=== PATIENT | female | born 1965 | race Caucasian/White ===

== ENCOUNTER 2018-07-07 23:06 | Emergency (ER) | payer BC ==
[2018-07-07] MEDS ORDERED: Sodium Chloride 0.9% 1000 ML 1,000 ML IV STA (23:36)
[2018-07-07] MEDS ORDERED: Hydromorphone 1 mg/ml Ampule IV ONE (23:36)
[2018-07-08] MEDS ORDERED: Hydromorphone 1 mg/ml Ampule ONE ×2 (00:05→03:22)
[2018-07-08] MEDS ORDERED: Sodium Chloride 0.9% 1000 ML 1,000 ML ONE (00:05)
[2018-07-08 00:22] LABS: BASOPHIL % 0.5 % (0.0-0.4); Basophil (Absolute #) 0.04 (0-0.4); Eosinophil % 3.1 % (0.00-5.0); Eosinophil (Absolute #) 0.23 (0-0.5); Granulocyte Absolute (ANC) 4.61 (1.4-6.9); Granulocytes % 61.9 % (36.0-66.0); Hematocrit 35.7 % (35-47); Hemoglobin 11.6 gm/dl (12.0-16.0); Lymphocyte (Absolute #) 2.04 (1.0-4.6); Lymphocytes % 27.4 % (24.0-44.0); Mean Cell Volume 92.5 fl (78-100); Mean Corpuscular Hgb Concent. 32.5 g/dl (32-36); Mean Platelet Volume 10.3 fl (6-9.5); Monocyte (Absolute #) 0.53 (0.0-1.3); Monocytes % 7.1 % (0.0-12.0); Platelet Count 308 K/mm3 (150-450); Red Blood Count 3.86 M/mm3 (4.1-5.4); White Blood Count 7.5 K/mm3 (4.0-10.5)
[2018-07-08 00:36] LABS: ALBUMIN 4.1 g/dL (3.5-5.0); ALKALINE PHOSPHATASE 370 U/L (38-126); AMYLASE 59 U/L (30-110); ANION GAP 11.3 MEQ/L (5-15); BLOOD UREA NITROGEN 13 mg/dL (7-17); CHLORIDE 106 mmol/L (98-107); Carbon Dioxide 24 mmol/L (22-30); Creatinine 1 0.62 mg/dL (0.52-1.04); Glucose 105 mg/dL (74-106); LIPASE 143 U/L (23-300); Potassium 3.9 mmol/L (3.5-5.1); SGOT/AST 629 U/L (14-36); SGPT/ALT 511 U/L (0-35); SODIUM 137 mmol/L (137-145); Total Protein 7.7 g/dL (6.3-8.2)
[2018-07-08 00:57] LABS: Appearance SLIGHTLY CLOUDY (CLEAR); Bacteria RARE /HPF (NEGATIVE); Bilirubin NEGATIVE (NEGATIVE); Blood SMALL Ery/ul (0-5); Epithelial Cells RARE /HPF (FEW); Glucose NEGATIVE (NEGATIVE); Ketones NEGATIVE (NEGATIVE); Leukocyte Esterase TRACE (NEGATIVE); Mucus SLIGHT /HPF (NEGATIVE); Nitrite NEGATIVE (NEGATIVE); Protein,Urine Dip NEGATIVE (Negative); RBC 0-2 /HPF (0-2); Specific Gravity 1.008 (1.005-1.025); Urobilinogen NEGATIVE mg/dL (0-1); WBC 0-2 /HPF (0-5)
--- NOTE | 2018-07-08 03:00 | ERPHSYRPT ---
- History of Present Illness Historian: patient Exam Limitations: no limitations Patient Subjective Stated Complaint: pt states she has had multiple epidodes of pain in the rt upper quad. pain started again at approx 2030 tonight and radiates to rt back. no relief with pain med. Triage Nursing Assessment: pt alert and oriented, answers questions approp. respirations nonlabored with lungs cta. pt ambulatory with steady gait noted. skin pink warm and dry. abd soft with tenderness in rt upper quad. bowel sounds present. Physician History: Pt is a 52 y/o female with a h/o abdominal pain in RUQ with radiation to shoulder and upper back. She denies F/C/S. No N/V/D. Pain is getting worse and worse, and today it was so severe, she had to come to the ER. Timing/Duration: day(s) Activities at Onset: none Quality: sharpness, stabbing Abdominal Pain Onset Location: RUQ Pain Radiation: scapula (on Left and shoulder.) Severity of Pain-Max: severe Severity of Pain-Current: mild Modifying Factors: Improves With: analgesics Associated Symptoms: denies symptoms Previous symptoms: same symptoms as today Allergies/Adverse Reactions: No Known Drug Allergies Allergy (Verified 07/07/18 23:27) Home Medications: Omeprazole 40 mg PO HS 07/07/18 [History] Venlafaxine HCl 37.5 mg [Effexor 37.5 mg] 37.5 mg PO HS 07/07/18 [History] Hx Tetanus, Diphtheria Vaccination/Date Given: Yes (2012) Hx Influenza Vaccination/Date Given: No Hx Pneumococcal Vaccination/Date Given: No Immunizations Up to Date: Yes - Review of Systems Constitutional: No Fever, No Chills Eyes: No Symptoms Ears, Nose, & Throat: No Symptoms Respiratory: No Cough, No Dyspnea Cardiac: No Chest Pain, No Edema, No Syncope Abdominal/Gastrointestinal: Abdominal Pain (RUQ) Genitourinary Symptoms: No Dysuria Musculoskeletal: No Back Pain, No Neck Pain Neurological: No Dizziness, No Focal Weakness, No Sensory Changes - Past Medical History Pertinent Past Medical History: No Neurological History: No Pertinent History Cardiac History: No Pertinent History Respiratory History: No Pertinent History Endocrine Medical History: No Pertinent History Musculoskeletal History: No Pertinent History - Past Surgical History Past Surgical History: Yes Gastrointestinal: Hemorrhoidectomy - Social History Smoking Status: Never smoker Exposure to second hand smoke: No Drug Use: none Patient Lives Alone: No - Female History Hx Last Menstrual Period: approx 3 weeks Hx Now: No - Nursing Vital Signs Nursing Vital Signs: Initial Vital Signs Temperature 97.4 F 07/07/18 23:14 Pulse Rate 81 07/07/18 23:14 Respiratory Rate 20 07/07/18 23:14 Blood Pressure 147/92 07/07/18 23:14 O2 Sat by Pulse Oximetry 99 07/07/18 23:14 Pain Scale Pain Intensity 10 - Physical Exam General Appearance: moderate distress (secondary to pain) Eye Exam: PERRL/EOMI, eyes nml inspection Ears, Nose, Throat Exam: normal ENT inspection, pharynx normal, moist mucous membranes Neck Exam: normal inspection, non-tender, supple, full range of motion Respiratory Exam: normal breath sounds, lungs clear, No respiratory distress Cardiovascular Exam: regular rate/rhythm, normal heart sounds Gastrointestinal/Abdomen Exam: soft, tenderness (RUQ) Back Exam: normal inspection, normal range of motion, No CVA tenderness, No vertebral tenderness Extremity Exam: normal inspection, normal range of motion, pelvis stable Neurologic Exam: alert, oriented x 3, cooperative, normal mood/affect, nml cerebellar function, sensation nml, No motor deficits SpO2: 100 - Course Nursing assessment & vital signs reviewed: Yes Ordered Tests: Active Orders 24 hr Category Date Time Status IV Insertion STAT Care 07/07/18 23:36 Active ABDOMEN AND PELVIS W CONTRAST [CT] Stat Exams 07/07/18 23:37 Taken CULTURE,URINE Stat Lab 07/08/18 00:43 Received UA W/RFX UR CULTURE Stat Lab 07/08/18 00:43 Completed Medication Summary Discontinued Medications Generic Name Dose Route Start Last Admin Trade Name Freq PRN Reason Stop Dose Admin Hydromorphone HCl 0.5 mg 07/07/18 23:36 07/08/18 00:09 Hydromorphone 1 Mg/Ml Ampule IV 07/07/18 23:37 0.5 mg STAT ONE Administration Hydromorphone HCl Confirm 07/08/18 00:05 Hydromorphone 1 Mg/Ml Ampule Administered 07/08/18 00:06 Dose 1 mg .ROUTE .STK-MED ONE Sodium Chloride 1,000 mls @ 999 mls/hr 07/07/18 23:36 07/08/18 01:12 Sodium Chloride 0.9% 1000 Ml IV 07/08/18 00:36 Infused .Q1H1M STA Infusion Sodium Chloride Confirm 07/08/18 00:05 Sodium Chloride 0.9% 1000 Ml Administered 07/08/18 00:06 Dose 1,000 mls @ ud .ROUTE .STK-MED ONE Lab/Rad Data: Laboratory Result Diagrams 07/07/18 00:19 07/07/18 00:19 Laboratory Results 07/08/18 07/07/18 07/07/18 Range/Units 00:43 00:19 00:19 WBC 7.5 (4.0-10.5) K/mm3 RBC 3.86 L (4.1-5.4) M/mm3 Hgb 11.6 L (12.0-16.0) gm/dl Hct 35.7 (35-47) % MCV 92.5 (78-100) fl MCH 30.0 (26-32) pg MCHC 32.5 (32-36) g/dl RDW 13.0 (11.5-14.0) % Plt Count 308 (150-450) K/mm3 MPV 10.3 H (6-9.5) fl Gran % 61.9 (36.0-66.0) % Eos # (Auto) 0.23 (0-0.5) Absolute Lymphs (auto) 2.04 (1.0-4.6) Absolute Monos (auto) 0.53 (0.0-1.3) Lymphocytes % 27.4 (24.0-44.0) % Monocytes % 7.1 (0.0-12.0) % Eosinophils % 3.1 (0.00-5.0) % Basophils % 0.5 (0.0-0.4) % Absolute Granulocytes 4.61 (1.4-6.9) Basophils # 0.04 (0-0.4) Sodium 137 (137-145) mmol/L Potassium 3.9 (3.5-5.1) mmol/L Chloride 106 (98-107) mmol/L Carbon Dioxide 24 (22-30) mmol/L Anion Gap 11.3 (5-15) MEQ/L BUN 13 (7-17) mg/dL Creatinine 0.62 (0.52-1.04) mg/dL Estimated GFR > 60.0 ML/MIN Glucose 105 (74-106) mg/dL Calcium 9.0 (8.4-10.2) mg/dL Total Bilirubin 0.90 (0.2-1.3) mg/dL AST 629 H (14-36) U/L ALT 511 H (0-35) U/L Alkaline Phosphatase 370 H (38-126) U/L Serum Total Protein 7.7 (6.3-8.2) g/dL Albumin 4.1 (3.5-5.0) g/dL Amylase 59 (30-110) U/L Lipase 143 (23-300) U/L Urine Color YELLOW (YELLOW) Urine Appearance SLIGHTLY CLOUDY (CLEAR) Urine pH 7.0 (5-6) Ur Specific Frederica 1.008 (1.005-1.025) Urine Protein NEGATIVE (Negative) Urine Ketones NEGATIVE (NEGATIVE) Urine Blood SMALL (0-5) Randy/ul Urine Nitrite NEGATIVE (NEGATIVE) Urine Bilirubin NEGATIVE (NEGATIVE) Urine Urobilinogen NEGATIVE (0-1) mg/dL Ur Leukocyte Esterase TRACE (NEGATIVE) Urine WBC (Auto) 0-2 (0-5) /HPF Urine RBC (Auto) 0-2 (0-2) /HPF U Epithel Cells (Auto) RARE (FEW) /HPF Urine Bacteria (Auto) RARE (NEGATIVE) /HPF Urine Mucus (Auto) SLIGHT (NEGATIVE) /HPF Urine Culture Reflexed YES (NO) Urine Glucose NEGATIVE (NEGATIVE) mg/dL - Progress Progress: improved Progress Note: 07/08/18 03:01 Pt in severe pain. She got Dilaudid 0.5mg IV and improved. IVF was given. labs showed increase in transaminases. CT was negative. Dr Castillo was contacted, and he recommended the pt to be transferred for ERCP. Dr Jacobo from [facility] accepted pt as a consult, and Dr Figueroa will be admitting physician for hospitalist. Pt will be kept NPO for ERCP in the AM. Counseled pt/family regarding: lab results, diagnosis, rad results - Departure Time of Disposition: 03:04 Departure Disposition: Transfer Clinical Impression: RUQ abdominal pain Condition: Stable Critical Care Time: No Referrals: RHODA GARCIA TRANSMISSION SUPERVISOR [Primary Care Provider] - Additional Instructions: Pt will be transferred to [facility]. DR Figueroa hospitalist accepts.m Dr Jacobo is consulted for ERCP.
[2018-07-08] MEDS ORDERED: Hydromorphone 1 mg/ml Ampule IV ONE (03:20)
[2018-07-08 03:26] VITALS: BP 131/82; PULSE 74; O2SAT 98
--- NOTE | 2018-07-08 09:12 | XRAY ---
Indication: Right upper quadrant pain and nausea one week. Multiple contiguous axial images obtained through the abdomen and pelvis using 80 cc Isovue 370 contrast only. Comparison: None Lung bases demonstrates mild bibasilar dependent atelectasis. No infiltrate or effusion. Heart is not enlarged. Stomach is distended with food/fluid. Noncontrasted stomach and bowel loops appear nonobstructed. Normal appendix. Mild diffuse scattered colonic fecal debris throughout. Gallbladder demonstrates 2 cm gallstone with mild wall thickening. No abnormal biliary distention. 1.4 cm caudate lobe hepatic hemangioma. Remaining liver, pancreas, spleen, adrenal glands, kidneys, ureters, bladder, uterus, and aorta appear unremarkable. No pathologic retroperitoneal lymphadenopathy. Osseous structures intact. No ventral or inguinal hernias. Impression: 1. Gallstone with mild wall thickening. Gallbladder sonogram may yield further information. 2. Hepatic hemangioma. 3. Fecal stasis without obstruction. Comment: Preliminary interpretation was made by [facility] who does not report gallbladder and liver findings. Telephone report given to Dr. Manriquez in the ER at 0856 hours on July 08, 2018. CT DI 27.85
== END 2018-07-08 03:59 | disposition short-term general hospital (02) ==
LOC: ED 23:06
DX: R10.11 Right upper quadrant pain (principal); Z79.899 Other long term (current) drug therapy
CPT/HCPCS: 36000; 36415; 74177; 80053; 81001; 82150; 83690; 85025; 87086; 96360; 96374; 96375; 96376; 99285; J1170

== ENCOUNTER 2019-12-24 06:26 | Day surgery (SDC) | payer BC, OTHER ==
[2019-12-24] MEDS ORDERED: Lactated Ringers 1,000 ML IV SCH (06:30)
[2019-12-24] MEDS ORDERED: DIPRIVAN 200 MG/20 ML IV ONE ×2 (08:41→08:52)
[2019-12-24 09:49] VITALS: BP 141/89; PULSE 69; O2SAT 99
--- NOTE | 2019-12-24 12:51 | OP ---
SURGERY DATE/TIME: 12/24/2019 0842 PREOPERATIVE DIAGNOSIS: Screening colonoscopy. POSTOPERATIVE DIAGNOSES: Screening colonoscopy, normal exam. PROCEDURES: Colonoscopy to cecum. SURGEON: Krishna Cordova M.D. ANESTHESIA: MAC. ESTIMATED BLOOD LOSS: None. COMPLICATIONS: None. SPECIMENS: None. FINDINGS: Normal exam. PATIENT PRESENTATION: This patient presents for screening colonoscopy. After discussing risks and benefits of colonoscopy the patient wished to proceed. DESCRIPTION OF PROCEDURE: The patient was brought to the endoscopy suite, placed in left lateral decubitus position, placed under MAC anesthesia. Rectal exam performed without abnormality. The scope was gently slowly advanced to the cecum without any difficulty requiring some external pressure. Bowel prep was quite good. There is minimal liquid stool that could be irrigated and suctioned. Ileocecal valve and appendiceal orifice were clearly identified. Scope was slowly withdrawn and the colon thoroughly evaluated. There was absolutely no pathology. The scope retroflexed into the rectum and then removed. The patient was recovered and taken back in stable condition. Plans for next colonoscopy in ten years unless symptoms develop.
== END 2019-12-24 09:59 | disposition home or self-care (01) ==
LOC: SDC 06:26
PROVIDERS: ATTEND Surgery
DX: Z12.11 Encounter for screening for malignant neoplasm of colon (principal)
CPT/HCPCS: J2704

== ENCOUNTER 2024-01-22 08:45 | Observation (INO) | payer BC ==
--- NOTE | 2024-01-22 09:13 | ERPHSYRPT ---
- History of Present Illness Time Seen by Provider: 01/22/24 09:07 Source: patient Physician History: 58-year-old female presents to the emergency department for evaluation of sudden collapse. Patient states she was walking outdoors. Patient acutely fainted and fell backwards. Patient has no recollection of what happened. Patient was advised that she collapsed. Patient now denies pain although she has bruising and some tenderness at her left forearm. Patient injured her left knee however patient states she was ambulatory after the episode. Patient denies any pain and does not want an x-ray of the left knee. No neck pain. Cervical spine cleared clinically. Symptoms are mild to moderate in intensity. No specific worsening improving factors. Patient voices no other complaints or concerns at this time. Portions of this note were created with voice recognition technology. There may be grammatical, spelling, punctuation or sound alike errors Timing/Duration: today Severity: moderate Associated Symptoms: denies symptoms Allergies/Adverse Reactions: No Known Drug Allergies Allergy (Verified 01/22/24 08:59) Home Medications: Venlafaxine HCl 37.5 mg [Effexor 37.5 mg] 37.5 mg PO HS 07/07/18 [History] Cetirizine HCl [Zyrtec] 10 mg PO DAILY 12/24/19 [History] Omeprazole 40 mg PO DAILY 01/22/24 [History] Hx Tetanus, Diphtheria Vaccination/Date Given: Yes (2012) Hx Influenza Vaccination/Date Given: No Hx Pneumococcal Vaccination/Date Given: No - Review of Systems Constitutional: No Symptoms, No Fever, No Chills Eyes: No Symptoms Ears, Nose, & Throat: No Symptoms Respiratory: No Symptoms, No Cough, No Dyspnea Cardiac: No Symptoms, No Chest Pain, No Edema, No Syncope Abdominal/Gastrointestinal: No Symptoms, No Abdominal Pain, No Nausea, No Vomiting, No Diarrhea Genitourinary Symptoms: No Symptoms, No Dysuria Musculoskeletal: No Symptoms, No Back Pain, No Neck Pain Skin: No Symptoms, No Rash Neurological: No Symptoms, No Dizziness, No Focal Weakness, No Sensory Changes Psychological: No Symptoms Endocrine: No Symptoms Hematologic/Lymphatic: No Symptoms Immunological/Allergic: No Symptoms All Other Systems: Reviewed and Negative - Past Medical History Pertinent Past Medical History: No Neurological History: No Pertinent History ENT History: No Pertinent History Cardiac History: No Pertinent History Respiratory History: No Pertinent History Endocrine Medical History: No Pertinent History Musculoskeletal History: No Pertinent History GI Medical History: No Pertinent History History: No Pertinent History Psycho-Social History: Anxiety Female Reproductive Disorders: No Pertinent History - Past Surgical History Past Surgical History: Yes Neuro Surgical History: No Pertinent History Cardiac: No Pertinent History Respiratory: No Pertinent History Gastrointestinal: Cholecystectomy, Hernia Repair Genitourinary: No Pertinent History Musculoskeletal: Orthopedic Surgery Female Surgical History: No Pertinent History Other Surgical History: L ankle - Social History Smoking Status: Never smoker Exposure to second hand smoke: No Drug Use: none Patient Lives Alone: No - Nursing Vital Signs Nursing Vital Signs: Initial Vital Signs Temperature 97.5 F 01/22/24 08:50 Pulse Rate 75 01/22/24 08:50 Respiratory Rate 18 01/22/24 08:50 Blood Pressure 149/101 01/22/24 08:50 O2 Sat by Pulse Oximetry 98 01/22/24 08:50 Pain Scale Pain Intensity 5 - Physical Exam General Appearance: no apparent distress, alert Eye Exam: PERRL/EOMI, eyes nml inspection Ears, Nose, Throat Exam: normal ENT inspection, moist mucous membranes Neck Exam: normal inspection, non-tender, supple, full range of motion Respiratory Exam: normal breath sounds, lungs clear, airway intact, No respiratory distress Cardiovascular Exam: regular rate/rhythm, normal heart sounds, normal peripheral pulses Gastrointestinal/Abdomen Exam: soft, normal bowel sounds, No tenderness, No mass Back Exam: normal inspection, normal range of motion, No CVA tenderness, No vertebral tenderness Extremity Exam: normal inspection, normal range of motion, pelvis stable, other (1+ nonpitting edema lower extremity) Neurologic Exam: alert, oriented x 3, cooperative, normal mood/affect, nml cerebellar function, nml station & gait, sensation nml, No motor deficits Skin Exam: normal color, warm, dry, No rash Lymphatic Exam: No adenopathy SpO2 Interpretation: normal SpO2: 98 O2 Delivery: Room Air - Course Nursing assessment & vital signs reviewed: Yes EKG Interpreted by Me: RATE (71), Sinus Rhythm (Anterior lead T wave inversions), NORMAL AXIS, NORMAL INTERVALS, NORMAL QRS - Radiology Exams Forearm X-ray Interpretation: Teleradiologist Report (No fracture or dislocation) Ordered Tests: Active Orders 24 hr Category Date Time Status Acute Care Occupational Therapist STAT Care 01/22/24 09:03 Active EKG-ER Only STAT Care 01/22/24 09:01 Active IV Insertion STAT Care 01/22/24 09:01 Active Pulse Oximetry (ED) STAT Care 01/22/24 09:01 Active CHEST WITH CONTRAST [CT] Stat Exams 01/22/24 10:24 Completed FOREARM Stat Exams 01/22/24 09:08 Completed HEAD WITHOUT CONTRAST [CT] Stat Exams 01/22/24 10:24 Completed CBC W DIFF Stat Lab 01/22/24 09:20 Completed CMP Stat Lab 01/22/24 09:20 Completed CULTURE,URINE Stat Lab 01/22/24 09:21 Received D-DIMER QUANTITATIVE Stat Lab 01/22/24 09:20 Completed HCG QUALITATIVE, URINE Stat Lab 01/22/24 09:20 Completed MAGNESIUM Stat Lab 01/22/24 09:20 Completed TROPONIN Q4H Lab 01/22/24 09:20 Completed TROPONIN Q4H Lab 01/22/24 13:15 Ordered TROPONIN Q4H Lab 01/22/24 17:15 Ordered UA W/RFX UR CULTURE Stat Lab 01/22/24 09:21 Completed Transfer Order Routine Transfer 01/22/24 Ordered Medication Summary Discontinued Medications Generic Name Dose Route Start Last Admin Trade Name Freq PRN Reason Stop Dose Admin Ceftriaxone Sodium 1 gm in 100 mls @ 200 mls/hr 01/22/24 09:54 01/22/24 11:36 Rocephin 1 Gm / 100 Ml Nacl IV 01/22/24 10:23 Infused STAT ONE Infusion Ceftriaxone Sodium Confirm 01/22/24 11:05 Rocephin 1 Gm / 100 Ml Nacl Administered 01/22/24 11:06 Dose 1 gm in 100 mls @ ud IV .STK-MED ONE Lab/Rad Data: Laboratory Result Diagrams 01/22/24 09:20 01/22/24 09:20 Laboratory Results 01/22/24 01/22/24 01/22/24 Range/Units 09:21 09:20 09:20 WBC (3.98-10.04) x10^3/uL RBC (3.93-5.22) x10^6/uL Hgb (11.2-15.7) g/dL Hct (34.1-44.9) % MCV (79.4-94.8) fL MCH (25.6-32.2) pg MCHC (32.2-35.5) g/dL RDW (11.7-14.4) % Plt Count (182-369) x10^3/uL MPV (9.4-12.3) fL Gran % (34.0-71.1) % Immature Gran % (Auto) (0.001-0.429) % Nucleat RBC Rel Count (0.00-0.2) % Eos # (Auto) (0.04-0.36) x10^3/uL Immature Gran # (Auto) (0.001-0.031) x10^3u/L Absolute Lymphs (auto) (1.18-3.74) x10^3/uL Absolute Monos (auto) (0.24-0.86) x10^3/uL Absolute Nucleated RBC (0.00-0.012) x10^3u/L Lymphocytes % (19.3-51.7) % Monocytes % (4.7-12.5) % Eosinophils % (0.7-5.8) % Basophils % (0.1-1.2) % Absolute Granulocytes (1.56-6.13) x10^3/uL Basophils # (0.01-0.08) x10^3/uL D-Dimer (0.0-0.50) mg/L Sodium (135-145) mmol/L Potassium (3.5-5.1) mmol/L Chloride (98-107) mmol/L Carbon Dioxide (22-30) mmol/L Anion Gap (5-15) MEQ/L BUN (7-17) mg/dL Creatinine (0.52-1.04) mg/dL Estimated GFR ML/MIN Glucose (74-106) mg/dL Calcium (8.4-10.2) mg/dL Magnesium (1.6-2.3) mg/dL Total Bilirubin (0.2-1.3) mg/dL AST (14-36) U/L ALT (0-35) U/L Alkaline Phosphatase (38-126) U/L Troponin I < 0.012 (0.000-0.033) ng/mL Serum Total Protein (6.3-8.2) g/dL Albumin (3.5-5.0) g/dL Urine Color Yellow (Yellow) Urine Appearance Clear (Clear) Urine pH 6.0 (4.6-8.0) Ur Specific Linch 1.015 (1.005-1.030) Urine Protein Negative (Negative) Urine Glucose (UA) Negative (Negative) mg/dL Urine Ketones Negative (Negative) Urine Blood Negative (Negative) Urine Nitrite Negative (Negative) Urine Bilirubin Negative (Negative) Urine Urobilinogen 0.2 (0.2) mg/dL Ur Leukocyte Esterase Moderate A (Negative) U Hyaline Cast (Auto) NONE SEEN (0-2) /LPF Urine Microscopic RBC 3-5 (0-5) /HPF Urine Microscopic WBC 11-20 A (0-5) /HPF Ur Epithelial Cells Moderate A (None Seen) /HPF Urine Bacteria Moderate A (None Seen) /HPF Urine Culture Reflexed YES (NO) Urine HCG, Qual NEGATIVE (NEGATIVE) 01/22/24 01/22/24 01/22/24 Range/Units 09:20 09:20 09:20 WBC 6.8 (3.98-10.04) x10^3/uL RBC 4.30 (3.93-5.22) x10^6/uL Hgb 12.2 (11.2-15.7) g/dL Hct 37.8 (34.1-44.9) % MCV 87.9 (79.4-94.8) fL MCH 28.4 (25.6-32.2) pg MCHC 32.3 (32.2-35.5) g/dL RDW 13.6 (11.7-14.4) % Plt Count 339 (182-369) x10^3/uL MPV 10.2 (9.4-12.3) fL Gran % 60.7 (34.0-71.1) % Immature Gran % (Auto) 0.3 (0.001-0.429) % Nucleat RBC Rel Count 0.0 (0.00-0.2) % Eos # (Auto) 0.23 (0.04-0.36) x10^3/uL Immature Gran # (Auto) 0.02 (0.001-0.031) x10^3u/L Absolute Lymphs (auto) 1.96 (1.18-3.74) x10^3/uL Absolute Monos (auto) 0.41 (0.24-0.86) x10^3/uL Absolute Nucleated RBC 0.00 (0.00-0.012) x10^3u/L Lymphocytes % 28.7 (19.3-51.7) % Monocytes % 6.0 (4.7-12.5) % Eosinophils % 3.4 (0.7-5.8) % Basophils % 0.9 (0.1-1.2) % Absolute Granulocytes 4.15 (1.56-6.13) x10^3/uL Basophils # 0.06 (0.01-0.08) x10^3/uL D-Dimer 0.53 H (0.0-0.50) mg/L Sodium 140 (135-145) mmol/L Potassium 4.1 (3.5-5.1) mmol/L Chloride 108 H (98-107) mmol/L Carbon Dioxide 25 (22-30) mmol/L Anion Gap 10.5 (5-15) MEQ/L BUN 15 (7-17) mg/dL Creatinine 0.71 (0.52-1.04) mg/dL Estimated GFR 99.7 ML/MIN Glucose 100 (74-106) mg/dL Calcium 9.2 (8.4-10.2) mg/dL Magnesium 2.2 (1.6-2.3) mg/dL Total Bilirubin 0.30 (0.2-1.3) mg/dL AST 29 (14-36) U/L ALT 23 (0-35) U/L Alkaline Phosphatase 76 (38-126) U/L Troponin I (0.000-0.033) ng/mL Serum Total Protein 7.3 (6.3-8.2) g/dL Albumin 4.0 (3.5-5.0) g/dL Urine Color (Yellow) Urine Appearance (Clear) Urine pH (4.6-8.0) Ur Specific Linch (1.005-1.030) Urine Protein (Negative) Urine Glucose (UA) (Negative) mg/dL Urine Ketones (Negative) Urine Blood (Negative) Urine Nitrite (Negative) Urine Bilirubin (Negative) Urine Urobilinogen (0.2) mg/dL Ur Leukocyte Esterase (Negative) U Hyaline Cast (Auto) (0-2) /LPF Urine Microscopic RBC (0-5) /HPF Urine Microscopic WBC (0-5) /HPF Ur Epithelial Cells (None Seen) /HPF Urine Bacteria (None Seen) /HPF Urine Culture Reflexed (NO) Urine HCG, Qual (NEGATIVE) - Progress Progress: improved Progress Note: 58-year-old female post syncope and collapse. Physical exam shows contusion to her left forearm. X-ray left forearm negative. Patient did hit her head. CT head negative for acute intracranial pathology. D-dimer positive. CTA chest negative for acute findings no PE. Incidental lung nodule observed. Laboratory workup nonremarkable. EKG T wave inversions anterior leads. Patient currently asymptomatic. Patient will be admitted for further evaluation and treatment. Case discussed with Dr. Hinkle hospitalist who accepts admission to observation. Portions of this note were created with voice recognition technology. There may be grammatical, spelling, punctuation or sound alike errors Complexity of problem addressed is moderate acute complicated. No critical care time. Complex of data reviewed and analyzed is sensitive. Test ordered chest reviewed results analyzed and correlated clinically with history and physical exam. Management discussed with hospitalist Dr. Greco who accepts admission at 11:43 AM. Risk of complication and or risk of morbidity/mortality of patient management is high. Patient requires hospitalization for further evaluation and treatment. Vital stable. Time spent admit patient is approximately 20 minutes. Plan of care established for shared decision making. No social determinants of health present to impede follow-up. Portions of this note were created with voice recognition technology. There may be grammatical, spelling, punctuation or sound alike errors 01/22/24 11:[address] Scott (Case discussed at 11:43 AM) Counseled pt/family regarding: lab results, diagnosis, rad results - Departure Departure Disposition: Observation Clinical Impression: Syncope and collapse, Contusion of left forearm, UTI (urinary tract infection), Lung nodule Condition: Stable Critical Care Time: No Referrals: RHODA GARCIA NP [Primary Care Provider] - Follow up/PCP as directed
[2024-01-22 09:27] LABS: Absolute Neutrophil Ct (ANC) 4.15 x10^3/uL (1.56-6.13); BASOPHIL % 0.9 % (0.1-1.2); Basophil (Absolute #) 0.06 x10^3/uL (0.01-0.08); Eosinophil % 3.4 % (0.7-5.8); Eosinophil (Absolute #) 0.23 x10^3/uL (0.04-0.36); Hematocrit 37.8 % (34.1-44.9); Hemoglobin 12.2 g/dL (11.2-15.7); IMMATURE GRAN # 0.02 x10^3u/L (0.001-0.031); IMMATURE GRAN % 0.3 % (0.001-0.429); Lymphocyte (Absolute #) 1.96 x10^3/uL (1.18-3.74); Lymphocytes % 28.7 % (19.3-51.7); Mean Cell Volume 87.9 fL (79.4-94.8); Mean Corpuscular Hemoglobin 28.4 pg (25.6-32.2); Mean Corpuscular Hgb Concent. 32.3 g/dL (32.2-35.5); Mean Platelet Volume 10.2 fL (9.4-12.3); Monocyte (Absolute #) 0.41 x10^3/uL (0.24-0.86); Neutrophil % 60.7 % (34.0-71.1); Platelet Count 339 x10^3/uL (182-369); Red Cell Distribution Width 13.6 % (11.7-14.4); White Blood Count 6.8 x10^3/uL (3.98-10.04)
[2024-01-22 09:30] LABS: HCG URINE TEST NEGATIVE (NEGATIVE)
[2024-01-22 09:34] LABS: Appearance Clear (Clear); Bacteria Moderate /HPF (None Seen); Bilirubin Negative (Negative); Blood Negative (Negative); Epithelial Cells Moderate /HPF (None Seen); Glucose, Urine Negative (Negative); Hyaline Casts NONE SEEN /LPF (0-2); Ketones Negative (Negative); Leukocyte Esterase Moderate (Negative); Nitrite Negative (Negative); Protein,Urine Dip Negative (Negative); Specific Gravity 1.015 (1.005-1.030); Urobilinogen 0.2 mg/dL (0.2)
--- NOTE | 2024-01-22 09:39 | XRAY ---
Indication: Pain following fall. Comparison: None 2 view left forearm demonstrates mild/moderate 1st metacarpal multangular scaphoid degenerative changes and overlying IV catheter. No other bony, articular, or soft tissue abnormalities.
[2024-01-22 09:48] LABS: ADD URINE CULTURE? YES (NO)
[2024-01-22 10:09] LABS: ANION GAP 10.5 MEQ/L (5-15); BILIRUBIN,TOTAL 0.3 mg/dL (0.2-1.3); Calcium 9.2 mg/dL (8.4-10.2); Creatinine 1 0.71 mg/dL (0.52-1.04); EST GLOMERULAR FILTRATION RATE 99.7 ML/MIN; MAGNESIUM 2.2 mg/dL (1.6-2.3); Potassium 4.1 mmol/L (3.5-5.1); Total Protein 7.3 g/dL (6.3-8.2)
[2024-01-22] MEDS ORDERED: ROCEPHIN 1 GM / 100 ML NaCl 1 GM/100 ML IVPB IV ONE (11:05)
[2024-01-22] MEDS: ROCEPHIN 1 GM / 100 ML NaCl 1 GM/100 ML IVPB IV ONE (11:07)
--- NOTE | 2024-01-22 11:31 | XRAY ---
Indication: Trauma. Left head injury following syncope. Multiple contiguous axial images obtained through the head without contrast. Comparison: None Normal appearing brain parenchyma, ventricles, and bony calvarium. Visualized paranasal sinuses and mastoid air cells are clear. Impression: Normal CT head without contrast exam.
--- NOTE | 2024-01-22 11:37 | XRAY ---
Indication: Syncope and collapse. Elevated d-dimer. Multiple contiguous axial images obtained through the chest using 80 cc Isovue 370 contrast and PE protocol. Comparison: None Good opacification pulmonary arteries to include the lobar and segmental branches. No pulmonary embolus. Heart not enlarged. Aorta is normal in course and caliber. No pathologic mediastinal/hilar lymphadenopathy. Lungs demonstrates minimal bilateral dependent atelectasis. Inferior right upper lobe demonstrates 7 mm noncalcified nodule. No infiltrate, consolidation, or effusion. Bony thorax intact with minimal levoscoliosis centered at T3. Limited upper abdomen demonstrates fatty liver and cholecystomy clips. Impression: 1. Negative pulmonary embolus. No acute cardiopulmonary abnormalities. 2. Chronic findings including indeterminant subcentimeter right upper lobe noncalcified nodule, levoscoliosis, and fatty liver.
--- NOTE | 2024-01-22 13:19 | PCM.HP ---
History of Present Illness - Chief Complaint Chief Complaint: Syncope and collapse Date: 01/22/24 History of Present Illness: is a 58 year old female with PMHX of Anxiety, GERD, allergies, and chronic obesity. She presented to the emergency department for evaluation of sudden collapse/ syncope. Patient states she was walking into work and this episode was witnessed by co-workers. Patient acutely fainted and fell forward. Patient has no recollection of what happened. Patient was advised that she collapsed. Patient now denies pain although she has bruising and some tenderness at her left forearm. Patient injured her left knee however patient states she was ambulatory after the episode. Patient denies any pain and does not want an x-ray of the left knee. No neck pain. Cervical spine cleared clinically. Symptoms are mild to moderate in intensity. No specific worsening improving factors. Patient voices no other complaints or concerns at this time. Radiology reports discussed with pt. Will continue IV antibiotics for UTI and IVF. Ordered Echo, carotid duplex, cardiology consult, and trend trops. She denies CP, SOB, abd. pain, N/V/D. - Review of Systems Constitutional: No Fever, No Chills Eyes: No Symptoms Ears, Nose, & Throat: No Symptoms Respiratory: No Cough, No Short Of Breath Cardiac: No Chest Pain, No Edema, No Syncope Abdominal/Gastrointestinal: No Abdominal Pain, No Nausea, No Vomiting, No Diarrhea Genitourinary Symptoms: No Dysuria Musculoskeletal: No Back Pain, No Neck Pain Skin: No Rash Neurological: Other (syncope), No Dizziness, No Focal Weakness, No Sensory Changes Psychological: No Symptoms Endocrine: No Symptoms Hematologic/Lymphatic: No Symptoms Immunological/Allergic: No Symptoms Medications & Allergies Home Medications: Home Medication List Venlafaxine HCl 37.5 mg [Effexor 37.5 mg] 37.5 mg PO HS 07/07/18 [History Confirmed 01/22/24] Cetirizine HCl [Zyrtec] 10 mg PO DAILY 12/24/19 [History Confirmed 01/22/24] Omeprazole 40 mg PO DAILY 01/22/24 [History Confirmed 01/22/24] Allergies/Adverse Reactions: Allergies Allergy/AdvReac Type Severity Reaction Status Date / Time No Known Drug Allergies Allergy Verified 01/22/24 08:59 - Past Medical History Past Medical History: No Neurological History: No Pertinent History ENT History: No Pertinent History Cardiac History: No Pertinent History Respiratory History: No Pertinent History Endocrine Medical History: No Pertinent History Musculoskelatal History: No Pertinent History GI Medical History: GERD History: No Pertinent History Pyscho-Social History: Anxiety Reproductive Disorders: No Pertinent History - Past Surgical History Past Surgical History: Yes Neuro Surgical History: No Pertinent History Cardiac History: No Pertinent History Respiratory Surgery: No Pertinent History GI Surgical History: Cholecystectomy, Hernia Repair Genitourinary Surgical Hx: No Pertinent History Musculskeletal Surgical Hx: Orthopedic Surgery Female Surgical History: No Pertinent History Other Surgical History: L ankle - Social History Smoking Status: Never smoker Exposure to second hand smoke: No Alcohol: Occasionally Drug Use: none - Social Determinants of Health Will the patient participate in the screening: Yes Do you worry about a steady place to live?: No Do you have any problems with any of the following?: No known problems In the past 12 months,have you had to go without utilities?: No Have you or anyone in your house had to go without enough: No Transportation Issues: No Has anyone in your support network made you feel unsafe?: No Does the patient want assistance with any of the above?: No - Physical Exam Vital Signs: Vital Signs - 24 hr Temp Pulse Resp BP BP Pulse Ox 01/22/24 12:04 97.7 F 70 16 131/79 98 01/22/24 11:51 98 01/22/24 11:16 68 16 139/91 97 01/22/24 10:30 65 15 151/95 96 01/22/24 10:00 66 17 131/81 100 01/22/24 09:31 75 14 120/85 96 01/22/24 09:01 98 01/22/24 09:00 73 18 148/107 97 01/22/24 08:50 97.5 F 75 18 149/101 98 General Appearance: no apparent distress, alert, obese Neurologic Exam: alert, oriented x 3, cooperative, normal mood/affect, nml cerebellar function, nml station & gait, sensation nml, No motor deficits Eye Exam: PERRL/EOMI, eyes nml inspection Ears, Nose, Throat Exam: normal ENT inspection, TMs normal, pharynx normal, moist mucous membranes Neck Exam: normal inspection, non-tender, supple, full range of motion Respiratory Exam: normal breath sounds, lungs clear, No respiratory distress Cardiovascular Exam: regular rate/rhythm, normal heart sounds, normal peripheral pulses Gastrointestinal/Abdomen Exam: soft, normal bowel sounds, No tenderness, No mass Back Exam: normal inspection, normal range of motion, No CVA tenderness, No vertebral tenderness Extremity Exam: normal inspection, normal range of motion, pelvis stable Skin Exam: normal color, warm, dry, No rash Lymphatic Exam: No adenopathy Results - Labs Lab/Micro Results: Lab Results-Last 24 Hours 01/22/24 01/22/24 01/22/24 Range/Units 09:20 09:20 09:20 WBC 6.8 (3.98-10.04) x10^3/uL RBC 4.30 (3.93-5.22) x10^6/uL Hgb 12.2 (11.2-15.7) g/dL Hct 37.8 (34.1-44.9) % MCV 87.9 (79.4-94.8) fL MCH 28.4 (25.6-32.2) pg MCHC 32.3 (32.2-35.5) g/dL RDW 13.6 (11.7-14.4) % Plt Count 339 (182-369) x10^3/uL MPV 10.2 (9.4-12.3) fL Gran % 60.7 (34.0-71.1) % Immature Gran % (Auto) 0.3 (0.001-0.429) % Nucleat RBC Rel Count 0.0 (0.00-0.2) % Eos # (Auto) 0.23 (0.04-0.36) x10^3/uL Immature Gran # (Auto) 0.02 (0.001-0.031) x10^3u/L Absolute Lymphs (auto) 1.96 (1.18-3.74) x10^3/uL Absolute Monos (auto) 0.41 (0.24-0.86) x10^3/uL Absolute Nucleated RBC 0.00 (0.00-0.012) x10^3u/L Lymphocytes % 28.7 (19.3-51.7) % Monocytes % 6.0 (4.7-12.5) % Eosinophils % 3.4 (0.7-5.8) % Basophils % 0.9 (0.1-1.2) % Absolute Granulocytes 4.15 (1.56-6.13) x10^3/uL Basophils # 0.06 (0.01-0.08) x10^3/uL D-Dimer 0.53 H (0.0-0.50) mg/L Sodium 140 (135-145) mmol/L Potassium 4.1 (3.5-5.1) mmol/L Chloride 108 H (98-107) mmol/L Carbon Dioxide 25 (22-30) mmol/L Anion Gap 10.5 (5-15) MEQ/L BUN 15 (7-17) mg/dL Creatinine 0.71 (0.52-1.04) mg/dL Estimated GFR 99.7 ML/MIN Glucose 100 (74-106) mg/dL Calcium 9.2 (8.4-10.2) mg/dL Magnesium 2.2 (1.6-2.3) mg/dL Total Bilirubin 0.30 (0.2-1.3) mg/dL AST 29 (14-36) U/L ALT 23 (0-35) U/L Alkaline Phosphatase 76 (38-126) U/L Troponin I (0.000-0.033) ng/mL Serum Total Protein 7.3 (6.3-8.2) g/dL Albumin 4.0 (3.5-5.0) g/dL Urine Color (Yellow) Urine Appearance (Clear) Urine pH (4.6-8.0) Ur Specific [place] (1.005-1.030) Urine Protein (Negative) Urine Glucose (UA) (Negative) mg/dL Urine Ketones (Negative) Urine Blood (Negative) Urine Nitrite (Negative) Urine Bilirubin (Negative) Urine Urobilinogen (0.2) mg/dL Ur Leukocyte Esterase (Negative) U Hyaline Cast (Auto) (0-2) /LPF Urine Microscopic RBC (0-5) /HPF Urine Microscopic WBC (0-5) /HPF Ur Epithelial Cells (None Seen) /HPF Urine Bacteria (None Seen) /HPF Urine Culture Reflexed (NO) Urine HCG, Qual (NEGATIVE) 01/22/24 01/22/24 01/22/24 Range/Units 09:20 09:20 09:21 WBC (3.98-10.04) x10^3/uL RBC (3.93-5.22) x10^6/uL Hgb (11.2-15.7) g/dL Hct (34.1-44.9) % MCV (79.4-94.8) fL MCH (25.6-32.2) pg MCHC (32.2-35.5) g/dL RDW (11.7-14.4) % Plt Count (182-369) x10^3/uL MPV (9.4-12.3) fL Gran % (34.0-71.1) % Immature Gran % (Auto) (0.001-0.429) % Nucleat RBC Rel Count (0.00-0.2) % Eos # (Auto) (0.04-0.36) x10^3/uL Immature Gran # (Auto) (0.001-0.031) x10^3u/L Absolute Lymphs (auto) (1.18-3.74) x10^3/uL Absolute Monos (auto) (0.24-0.86) x10^3/uL Absolute Nucleated RBC (0.00-0.012) x10^3u/L Lymphocytes % (19.3-51.7) % Monocytes % (4.7-12.5) % Eosinophils % (0.7-5.8) % Basophils % (0.1-1.2) % Absolute Granulocytes (1.56-6.13) x10^3/uL Basophils # (0.01-0.08) x10^3/uL D-Dimer (0.0-0.50) mg/L Sodium (135-145) mmol/L Potassium (3.5-5.1) mmol/L Chloride (98-107) mmol/L Carbon Dioxide (22-30) mmol/L Anion Gap (5-15) MEQ/L BUN (7-17) mg/dL Creatinine (0.52-1.04) mg/dL Estimated GFR ML/MIN Glucose (74-106) mg/dL Calcium (8.4-10.2) mg/dL Magnesium (1.6-2.3) mg/dL Total Bilirubin (0.2-1.3) mg/dL AST (14-36) U/L ALT (0-35) U/L Alkaline Phosphatase (38-126) U/L Troponin I < 0.012 (0.000-0.033) ng/mL Serum Total Protein (6.3-8.2) g/dL Albumin (3.5-5.0) g/dL Urine Color Yellow (Yellow) Urine Appearance Clear (Clear) Urine pH 6.0 (4.6-8.0) Ur Specific [place] 1.015 (1.005-1.030) Urine Protein Negative (Negative) Urine Glucose (UA) Negative (Negative) mg/dL Urine Ketones Negative (Negative) Urine Blood Negative (Negative) Urine Nitrite Negative (Negative) Urine Bilirubin Negative (Negative) Urine Urobilinogen 0.2 (0.2) mg/dL Ur Leukocyte Esterase Moderate A (Negative) U Hyaline Cast (Auto) NONE SEEN (0-2) /LPF Urine Microscopic RBC 3-5 (0-5) /HPF Urine Microscopic WBC 11-20 A (0-5) /HPF Ur Epithelial Cells Moderate A (None Seen) /HPF Urine Bacteria Moderate A (None Seen) /HPF Urine Culture Reflexed YES (NO) Urine HCG, Qual NEGATIVE (NEGATIVE) - Radiology Impressions Radiology Exams & Impressions: Radiology Procedures Category Date Time Status CAROTID BILATERAL [US] Routine Exams 01/22/24 12:18 Ordered CHEST WITH CONTRAST [CT] Stat Exams 01/22/24 10:24 Completed ECHO W/2D AND DOPPLER [US] Routine Exams 01/22/24 12:17 Ordered FOREARM Stat Exams 01/22/24 09:08 Completed HEAD WITHOUT CONTRAST [CT] Stat Exams 01/22/24 10:24 Completed Assessment/Plan (1) UTI (urinary tract infection) Current Visit: Yes Status: Acute Assessment & Plan: - Continue Rocephiin - IVF - UC pending Code(s): N39.0 - URINARY TRACT INFECTION, SITE NOT SPECIFIED (2) Fatty liver Current Visit: Yes Status: Acute Assessment & Plan: - as seen on CT - advised diet changes and exercise - f/u with PCP OP Code(s): K76.0 - FATTY (CHANGE OF) LIVER, NOT ELSEWHERE CLASSIFIED (3) T wave inversion in EKG Current Visit: Yes Status: Acute Assessment & Plan: - as seen on EKG - cardiology consult - Tele Code(s): R94.31 - ABNORMAL ELECTROCARDIOGRAM [ECG] [EKG] (4) Contusion of left forearm Current Visit: Yes Status: Acute Assessment & Plan: - XR of keft arm negative for acute concern - + bruising. - RICE techniques Code(s): S50.12XA - CONTUSION OF LEFT FOREARM, INITIAL ENCOUNTER (5) Lung nodule Current Visit: Yes Status: Acute Assessment & Plan: - as seen on CT- F/U OP Code(s): R91.1 - SOLITARY PULMONARY NODULE (6) Syncope and collapse Current Visit: Yes Status: Acute Assessment & Plan: - Echo - carotid duplex - Head CT negative for acute concern - D-dimer 0.53 - Chest CT: Impression: 1. Negative pulmonary embolus. No acute cardiopulmonary abnormalities. 2. Chronic findings including indeterminant subcentimeter right upper lobe noncalcified nodule, levoscoliosis, and fatty liver. -Forearm XR 2 view left forearm demonstrates mild/moderate 1st metacarpal multangular scaphoid degenerative changes and overlying IV catheter. No other bony, articular, or soft tissue abnormalities. - IVF, antibiotics for UTI - Tylenol for H/A Code(s): R55 - SYNCOPE AND COLLAPSE (7) Anxiety Current Visit: Yes Status: Chronic Assessment & Plan: - continue Effexor XR Code(s): F41.9 - ANXIETY DISORDER, UNSPECIFIED (8) GERD (gastroesophageal reflux disease) Current Visit: Yes Status: Chronic Assessment & Plan: - continue omeprazole Code(s): K21.9 - GASTRO-ESOPHAGEAL REFLUX DISEASE WITHOUT ESOPHAGITIS (9) Allergies Current Visit: Yes Status: Chronic Assessment & Plan: - continue zyrtec Code(s): T78.40XA - ALLERGY, UNSPECIFIED, INITIAL ENCOUNTER (10) Obesity (BMI 30.0-34.9) Current Visit: Yes Status: Chronic Assessment & Plan: - advised diet and exercise control VTE: Loveonx PPI: Omeprazole Next of KIN: D/C plan: tomorrow Code status: Full Code(s): E66.9 - OBESITY, UNSPECIFIED
[2024-01-22] MEDS: Sodium Chloride 0.9% 1000 ML 1,000 ML IV SCH (14:55)
--- NOTE | 2024-01-22 14:56 | XRAY ---
Indication: Syncope. Two-dimensional sonogram and color Doppler imaging carotid arteries of the neck performed. Comparison: None Examination right carotid circulation demonstrates widely patent common carotid, carotid bulb, internal carotid, and external carotid arteries. Distal internal carotid artery is tortuous. PSV CCA is 89 cm/s. PSV ICA is 96 cm/s. ICA/CCA ratio is 1.1. Normal antegrade vertebral artery flow. Examination left carotid circulation demonstrates widely patent common carotid, carotid bulb, internal carotid, and external carotid arteries. PSV CCA is 106 cm/s. PSV ICA is 94 cm/s. ICA/CCA ratio is 0.9. Normal antegrade vertebral artery flow. Impression: Widely patent carotid arteries of the neck. Velocity measurements and ratios negative for hemodynamically significant flow-limiting stenosis.
[2024-01-22] MEDS: TYLENOL 325 MG PO STA (14:58)
[2024-01-22 14:59] LABS: INFLUENZA A NEGATIVE (NEGATIVE); INFLUENZA B NEGATIVE (NEGATIVE); RESPIRATORY SYNCTIAL VIRUS NEGATIVE (NEGATIVE); SARS-CoV-2 Xpert Express NEGATIVE (NEGATIVE)
[2024-01-22] MEDS: ENOXAPARIN SODIUM SQ SCH (15:02)
[2024-01-22] MEDS: TYLENOL 325 MG PO PRN (21:12)
[2024-01-22] MEDS: EFFEXOR 37.5 MG PO SCH (21:12)
[2024-01-23 05:11] LABS: Hematocrit 34.3 % (34.1-44.9); Mean Cell Volume 87.1 fL (79.4-94.8); Mean Corpuscular Hemoglobin 27.9 pg (25.6-32.2); Mean Corpuscular Hgb Concent. 32.1 g/dL (32.2-35.5); Mean Platelet Volume 10.2 fL (9.4-12.3); Platelet Count 333 x10^3/uL (182-369); Red Blood Count 3.94 x10^6/uL (3.93-5.22); Red Cell Distribution Width 13.7 % (11.7-14.4); White Blood Count 4.7 x10^3/uL (3.98-10.04)
[2024-01-23 05:33] LABS: ALBUMIN 3.7 g/dL (3.5-5.0); ANION GAP 11.3 MEQ/L (5-15); BILIRUBIN,TOTAL 0.4 mg/dL (0.2-1.3); Calcium 8.6 mg/dL (8.4-10.2); Creatinine 1 0.68 mg/dL (0.52-1.04); EST GLOMERULAR FILTRATION RATE 102.2 ML/MIN; Potassium 3.8 mmol/L (3.5-5.1); Total Protein 6.7 g/dL (6.3-8.2)
[2024-01-23 07:20] VITALS: RESP 16; TEMP 98.1
[2024-01-23] MEDS: Protonix 40MG Tablet PO SCH (08:55)
[2024-01-23] MEDS: CLARITIN 10 MG PO SCH (08:56)
[2024-01-23] MEDS ORDERED: ROCEPHIN 1 GM / 100 ML NaCl 1 GM/100 ML IVPB IV SCH (10:00)
[2024-01-23] MEDS: Imitrex 6 MG/0.5 ML SQ STA (10:34)
--- NOTE | 2024-01-23 11:30 | PCM.DS ---
Discharge Summary Date of Admission: 01/22/24 11:55 Date of Discharge: 01/23/24 Admitting Physician: COBY TRENT MD Consults: Consults on Case 01/22/24 13:17 Cardiology Consult [Notify Analysis Engineer of Admit] ROUTINE Primary Care Provider: RHODA GARCIA Allergies Allergies No Known Drug Allergies Allergy (Verified 01/22/24 08:59) Hospital Summary - Hospital Course Hospital Course: 01/22/24 is a 58 year old female with PMHX of Anxiety, GERD, allergies, and chronic obesity. She presented to the emergency department for evaluation of sudden collapse/ syncope. Patient states she was walking into work and this episode was witnessed by co-workers. Patient acutely fainted and fell forward. Patient has no recollection of what happened. Patient was advised that she collapsed. Patient now denies pain although she has bruising and some tenderness at her left forearm. Patient injured her left knee however patient states she was ambulatory after the episode. Patient denies any pain and does not want an x-ray of the left knee. No neck pain. Cervical spine cleared c linically. Symptoms are mild to moderate in intensity. No specific worsening improving factors. Patient voices no other complaints or concerns at this time. Radiology reports discussed with pt. Will continue IV antibiotics for UTI and IVF. Ordered Echo, carotid duplex, cardiology consult, and trend trops. She denies CP, SOB, abd. pain, N/V/D. 01/23/24 Pt resting in bed. She denies any overnight events. She feels her syncopal episode may have been related to stress and no sleep 2:2 her job. Discussed pt case with cardiology and he agrees with Holter monitor OP. Echo and carotid duplex non-concerning. She states she has H/A daily and uses Excedrin migraine daily. She reports she has never discussed this with her PCP. Imitrex started now for H/A today. She would benefit from Op migraine med management. She would prefer to f/u with PCP and does not referral to neurology at this time OP. UC negative and antibiotic stopped. AST/ ALT and Alk phos elevated. She will need repeat Op labs this week by PCP for f/u. If ok with cardiology she can d/c today. She denies any further concerns at this time. * Pt admitted to having diarrhea to sales and service advisor OXYACETYLENE BURNER but did not tell provider this. Labs did not indicate dehydration. She has had no diarrhea since admission. Cardiology does not feel after speaking with her that she needs a holter monitor OP. He would like her to have calcium scoring OP. - Vitals & Intake/Output Vital Signs: Vital Signs Temperature 98.1 F 01/23/24 07:19 Pulse Rate 78 01/23/24 08:42 Respiratory Rate 16 01/23/24 07:19 Blood Pressure 142/90 01/23/24 08:42 O2 Sat by Pulse Oximetry 95 01/23/24 07:19 Intake & Output: Intake & Output 01/20/24 01/21/24 01/22/24 01/23/24 11:59 11:59 11:59 11:59 Intake Total 3218 Balance 3218 Weight 106 kg 103.5 kg - Lab Result Diagrams: 01/23/24 05:00 01/23/24 05:00 Lab Results-Last 24 Hrs: Lab Results-Last 24 Hours 01/22/24 01/22/24 01/22/24 Range/Units 13:15 17:06 Unknown WBC (3.98-10.04) x10^3/uL RBC (3.93-5.22) x10^6/uL Hgb (11.2-15.7) g/dL Hct (34.1-44.9) % MCV (79.4-94.8) fL MCH (25.6-32.2) pg MCHC (32.2-35.5) g/dL RDW (11.7-14.4) % Plt Count (182-369) x10^3/uL MPV (9.4-12.3) fL Sodium (135-145) mmol/L Potassium (3.5-5.1) mmol/L Chloride (98-107) mmol/L Carbon Dioxide (22-30) mmol/L Anion Gap (5-15) MEQ/L BUN (7-17) mg/dL Creatinine (0.52-1.04) mg/dL Estimated GFR ML/MIN Glucose (74-106) mg/dL Calcium (8.4-10.2) mg/dL Total Bilirubin (0.2-1.3) mg/dL AST (14-36) U/L ALT (0-35) U/L Alkaline Phosphatase (38-126) U/L Troponin I < 0.012 < 0.012 (0.000-0.033) ng/mL Serum Total Protein (6.3-8.2) g/dL Albumin (3.5-5.0) g/dL Influenza Type A Ag NEGATIVE (NEGATIVE) Influenza Type B Ag NEGATIVE (NEGATIVE) RSV (PCR) NEGATIVE (NEGATIVE) SARS-CoV-2 (PCR) NEGATIVE (NEGATIVE) 01/23/24 01/23/24 Range/Units 05:00 05:00 WBC 4.7 (3.98-10.04) x10^3/uL RBC 3.94 (3.93-5.22) x10^6/uL Hgb 11.0 L (11.2-15.7) g/dL Hct 34.3 (34.1-44.9) % MCV 87.1 (79.4-94.8) fL MCH 27.9 (25.6-32.2) pg MCHC 32.1 L (32.2-35.5) g/dL RDW 13.7 (11.7-14.4) % Plt Count 333 (182-369) x10^3/uL MPV 10.2 (9.4-12.3) fL Sodium 140 (135-145) mmol/L Potassium 3.8 (3.5-5.1) mmol/L Chloride 107 (98-107) mmol/L Carbon Dioxide 25 (22-30) mmol/L Anion Gap 11.3 (5-15) MEQ/L BUN 11 (7-17) mg/dL Creatinine 0.68 (0.52-1.04) mg/dL Estimated GFR 102.2 ML/MIN Glucose 93 (74-106) mg/dL Calcium 8.6 (8.4-10.2) mg/dL Total Bilirubin 0.40 (0.2-1.3) mg/dL AST 153 H (14-36) U/L ALT 83 H (0-35) U/L Alkaline Phosphatase 147 H (38-126) U/L Troponin I (0.000-0.033) ng/mL Serum Total Protein 6.7 (6.3-8.2) g/dL Albumin 3.7 (3.5-5.0) g/dL Influenza Type A Ag (NEGATIVE) Influenza Type B Ag (NEGATIVE) RSV (PCR) (NEGATIVE) SARS-CoV-2 (PCR) (NEGATIVE) Micro Results-Entire Visit: Microbiology 01/22/24 09:21 Urine Culture - Preliminary Urine, Void NO GROWTH TO DATE - Radiology Exams Ordered Rad Exams-Entire Visit: Radiology Procedures Category Date Time Status CAROTID BILATERAL [US] Routine Exams 01/22/24 12:18 Completed CHEST WITH CONTRAST [CT] Stat Exams 01/22/24 10:24 Completed ECHO W/2D AND DOPPLER [US] Routine Exams 01/22/24 12:17 Taken FOREARM Stat Exams 01/22/24 09:08 Completed HEAD WITHOUT CONTRAST [CT] Stat Exams 01/22/24 10:24 Completed - Procedures and Test Procedures and Tests throughout Hospitalization: Therapy Orders & Screens 01/23/24 07:42 EKG STAT Comment: Diagnosis: Syncope and collapse Discharge Exam General Appearance: no apparent distress, alert, obese Neurologic Exam: alert, oriented x 3, cooperative, normal mood/affect, nml cerebellar function, sensation nml, No motor deficits Eye Exam: PERRL, EOMI, eyes nml inspection Ears, Nose, Throat Exam: normal ENT inspection, pharynx normal, moist mucous membranes Neck Exam: normal inspection, non-tender, supple, full range of motion Respiratory Exam: normal breath sounds, lungs clear, No respiratory distress Cardiovascular Exam: regular rate/rhythm, normal heart sounds Gastrointestinal/Abdomen Exam: soft, No tenderness, No mass Pelvic Exam: deferred Rectal Exam: deferred Back Exam: normal inspection, normal range of motion, No CVA tenderness, No vertebral tenderness Extremity Exam: normal inspection, normal range of motion Skin Exam: normal color, warm, dry Final Diagnosis/Problem List - Final Discharge Diagnosis/Problem (1) UTI (urinary tract infection) Current Visit: Yes Status: Acute Code(s): N39.0 - URINARY TRACT INFECTION, SITE NOT SPECIFIED (2) Fatty liver Current Visit: Yes Status: Acute Code(s): K76.0 - FATTY (CHANGE OF) LIVER, NOT ELSEWHERE CLASSIFIED (3) T wave inversion in EKG Current Visit: Yes Status: Acute Code(s): R94.31 - ABNORMAL ELECTROCARDIOGRAM [ECG] [EKG] (4) Contusion of left forearm Current Visit: Yes Status: Acute Code(s): S50.12XA - CONTUSION OF LEFT FOREARM, INITIAL ENCOUNTER (5) Lung nodule Current Visit: Yes Status: Acute Code(s): R91.1 - SOLITARY PULMONARY NODULE (6) Syncope and collapse Current Visit: Yes Status: Acute Code(s): R55 - SYNCOPE AND COLLAPSE (7) Anxiety Current Visit: Yes Status: Chronic Code(s): F41.9 - ANXIETY DISORDER, UNSPECIFIED (8) GERD (gastroesophageal reflux disease) Current Visit: Yes Status: Chronic Code(s): K21.9 - GASTRO-ESOPHAGEAL REFLUX DISEASE WITHOUT ESOPHAGITIS (9) Allergies Current Visit: Yes Status: Chronic Code(s): T78.40XA - ALLERGY, UNSPECIFIED, INITIAL ENCOUNTER (10) Obesity (BMI 30.0-34.9) Current Visit: Yes Status: Chronic Assessment & Plan: (1) UTI (urinary tract infection) Current Visit: Yes Status: Acute Assessment & Plan: - Continue Rocephiin - IVF - UC pending 01/22 - UC negative - antibiotics stopped Code(s): N39.0 - URINARY TRACT INFECTION, SITE NOT SPECIFIED (2) Fatty liver Current Visit: Yes Status: Acute Assessment & Plan: - as seen on CT - advised diet changes and exercise - f/u with PCP OP 01/22 - AST 153, ALT 83, alk phos 147- recheck this week OP with PCP - Consider referral to specialist. Code(s): K76.0 - FATTY (CHANGE OF) LIVER, NOT ELSEWHERE CLASSIFIED (3) T wave inversion in EKG Current Visit: Yes Status: Acute Assessment & Plan: - as seen on EKG - cardiology consult - Tele 01/22 - repeat EKG improved Code(s): R94.31 - ABNORMAL ELECTROCARDIOGRAM [ECG] [EKG] (4) Contusion of left forearm Current Visit: Yes Status: Acute Assessment & Plan: - XR of keft arm negative for acute concern - + bruising. - RICE techniques Code(s): S50.12XA - CONTUSION OF LEFT FOREARM, INITIAL ENCOUNTER (5) Lung nodule Current Visit: Yes Status: Acute Assessment & Plan: - as seen on CT- F/U OP 01/22 - Per Fleischner guideline repeat CT chest in 6- 12 months- f/u with PCP Code(s): R91.1 - SOLITARY PULMONARY NODULE (6) Syncope and collapse Current Visit: Yes Status: Acute Assessment & Plan: - Echo - carotid duplex - Head CT negative for acute concern - D-dimer 0.53 - Chest CT: Impression: 1. Negative pulmonary embolus. No acute cardiopulmonary abnormalities. 2. Chronic findings including indeterminant subcentimeter right upper lobe noncalcified nodule, levoscoliosis, and fatty liver. -Forearm XR 2 view left forearm demonstrates mild/moderate 1st metacarpal multangular scaphoid degenerative changes and overlying IV catheter. No other bony, articular, or soft tissue abnormalities. - IVF, antibiotics for UTI - Tylenol for H/A 01/22 - echo- EF 60-65% - carotid duplex - non-concerning - No Holter monitor needed OP per cardiology - Pt would benefit from calcium scoring test OP. - Pt reported to cardiology she had diarrhea OXYACETYLENE BURNER- she never mentioned this to m e. No diarrhea since admission and labs do not show dehydration. Code(s): R55 - SYNCOPE AND COLLAPSE (7) Anxiety Current Visit: Yes Status: Chronic Assessment & Plan: - continue Effexor XR 01/22 - pt reports increased stress 2:2 to her job and not getting enough sleep. She feels this is what caused syncopal episode Code(s): F41.9 - ANXIETY DISORDER, UNSPECIFIED (8) GERD (gastroesophageal reflux disease) Current Visit: Yes Status: Chronic Assessment & Plan: - continue omeprazole Code(s): K21.9 - GASTRO-ESOPHAGEAL REFLUX DISEASE WITHOUT ESOPHAGITIS (9) Allergies Current Visit: Yes Status: Chronic Assessment & Plan: - continue zyrtec Code(s): T78.40XA - ALLERGY, UNSPECIFIED, INITIAL ENCOUNTER (10) Obesity (BMI 30.0-34.9) Current Visit: Yes Status: Chronic Assessment & Plan: - advised diet and exercise control Code(s): E66.9 - OBESITY, UNSPECIFIED (11) Migraine headache Current Visit: Yes Status: Acute Assessment & Plan: - Imitrex started - Advised not to take Excedrin migraine daily as she has been doing. - She declined referral to neurology and would prefer PCP manage. - RX for Imitrex 25mg daily PRN sent in. F/U with PCP for further management. Code(s): G43.909 - MIGRAINE, UNSP, NOT INTRACTABLE, WITHOUT STATUS MIGRAINOSUS - Discharge Discharge Date: 01/23/24 Disposition: Home, Self-Care Condition: Stable Prescriptions: New Sumatriptan Succinate 25 mg [Imitrex 25 MG] 25 mg SQ DAILY PRN PRN 9 Days #9 tab PRN Reason: Headache Continue Venlafaxine HCl 37.5 mg [Effexor 37.5 mg] 37.5 mg PO HS Cetirizine HCl [Zyrtec] 10 mg PO DAILY Omeprazole 40 mg PO DAILY Outpatient Orders: Holter Monitor Facility: [facility], Location: RESPIRATORY THERAPY Follow up with: RHODA GARCIA NP [Primary Care Provider] - 01/28/24 2:00 pm
[2024-01-23 12:18] VITALS: BP 133/73; PULSE 72; O2SAT 94
--- NOTE | 2024-01-23 12:39 | PCM.CONS ---
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 female with history of GERD and anxiety who was admitted following a syncopal episode. While getting dressed for work yesterday am, she had voluminous diarrhea which she attributes to eating spaghetti the night before. Following this episode, she continued to get dress and only drank her am coffee. She was not bothered by light-headedness upon standing afterwards. 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 She denied any urinary or fecal incontinance. No confusion afterwards. She did feel mildly light-headed for 5-10 minutes. She was given Gatorade and felt better. She denies any chest discomfort, shortness of breath, or palpitations. She was subsequently brought to our hospital. ECG showed her to have mild T wave inversion in leads V2 and V3. Serial cardiac enzymes were negative x3. Echocardiogram showed a structurally normal heart with LVEF of 60-65%. cc:: The requesting physician will be sent a copy of the consult. Review of Systems - Review of Systems All systems: all other systems reviewed and were unremarkable (Pertinent positves and negatives in HPI.) - Past Medical History Past Medical History: No Neurological History: No Pertinent History ENT History: No Pertinent History Cardiac History: No Pertinent History Respiratory History: No Pertinent History Endocrine Medical History: No Pertinent History Musculoskelatal History: No Pertinent History GI Medical History: GERD History: No Pertinent History Pyscho-Social History: Anxiety Reproductive Disorders: No Pertinent History - Past Surgical History Past Surgical History: Yes Neuro Surgical History: No Pertinent History Cardiac History: No Pertinent History Respiratory Surgery: No Pertinent History GI Surgical History: Cholecystectomy, Hernia Repair Genitourinary Surgical Hx: No Pertinent History Musculskeletal Surgical Hx: Orthopedic Surgery Female Surgical History: No Pertinent History Other Surgical History: L ankle - Social History Smoking Status: Never smoker Exposure to second hand smoke: No Alcohol: Occasionally Drug Use: none - Social Determinants of Health Will the patient participate in the screening: Yes Do you worry about a steady place to live?: No Do you have any problems with any of the following?: No known problems In the past 12 months,have you had to go without utilities?: No Have you or anyone in your house had to go without enough: No Transportation Issues: No Has anyone in your support network made you feel unsafe?: No Does the patient want assistance with any of the above?: No Medications & Allergies Home Medications: Home Medication List Venlafaxine HCl 37.5 mg [Effexor 37.5 mg] 37.5 mg PO HS 07/07/18 [History Confirmed 01/22/24] Cetirizine HCl [Zyrtec] 10 mg PO DAILY 12/24/19 [History Confirmed 01/22/24] Omeprazole 40 mg PO DAILY 01/22/24 [History Confirmed 01/22/24] Sumatriptan Succinate 25 mg [Imitrex 25 MG] 25 mg SQ DAILY PRN PRN 9 Days #9 tab 01/23/24 [Rx] Allergies/Adverse Reactions: Allergies Allergy/AdvReac Type Severity Reaction Status Date / Time No Known Drug Allergies Allergy Verified 01/22/24 08:59 Exam - Vitals Vital Signs: Vital Signs - 24 hr Temp Pulse Resp BP Pulse Ox 01/23/24 12:00 98.1 F 72 16 133/73 94 L 01/23/24 08:42 78 142/90 01/23/24 08:41 77 134/89 01/23/24 08:40 71 124/73 01/23/24 07:19 98.1 F 76 16 158/72 95 01/23/24 04:00 97.0 F 74 18 122/67 95 01/23/24 00:00 97.0 F 72 20 122/67 96 01/22/24 20:00 97.2 F 70 18 139/83 95 01/22/24 19:40 69 17 98 01/22/24 16:00 98.0 F 73 16 124/80 98 General:: alert and oriented x 4, no acute distress HEENT: EOMI, No JVD Cardiovascular Exam: regular rate/rhythm, normal heart sounds, normal peripheral pulses, No murmur, No friction rub, No gallop, No edema Respiratory Exam: normal breath sounds SpO2: 94 Oxygen Delivery: Room Air Gastrointestinal/Abdomen Exam: normal bowel sounds Skin Exam: warm Extremity Exam: No edema 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 II-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 grossly intact, No motor deficits Results Vital Signs: Vital Signs - 24 hr Temp Pulse Resp BP Pulse Ox 01/23/24 12:00 98.1 F 72 16 133/73 94 L 01/23/24 08:42 78 142/90 01/23/24 08:41 77 134/89 01/23/24 08:40 71 124/73 01/23/24 07:19 98.1 F 76 16 158/72 95 01/23/24 04:00 97.0 F 74 18 122/67 95 01/23/24 00:00 97.0 F 72 20 122/67 96 01/22/24 20:00 97.2 F 70 18 139/83 95 01/22/24 19:40 69 17 98 01/22/24 16:00 98.0 F 73 16 124/80 98 Pain Assessment - Last Documented Pain Intensity 2 Pain Scale Used 0-10 Pain Scale Intake and Output: Intake & Output 01/21/24 01/22/24 01/23/24 01/24/24 11:59 11:59 11:59 11:59 Intake Total 3218 Balance 3218 Weight 106 kg 103.5 kg LAB: I have reviewed the Labs in [facility]. Radiology Exams: Radiology Procedures Category Date Time Status CAROTID BILATERAL [US] Routine Exams 01/22/24 12:18 Completed CHEST WITH CONTRAST [CT] Stat Exams 01/22/24 10:24 Completed ECHO W/2D AND DOPPLER [US] Routine Exams 01/22/24 12:17 Taken FOREARM Stat Exams 01/22/24 09:08 Completed HEAD WITHOUT CONTRAST [CT] Stat Exams 01/22/24 10:24 Completed TTE 01/22/2024: 1. Normal biventricular wall thickness, chamber size, and systolic function. 2. Estimated left ventricular ejection fraction is 60-65%. 3. Normal diastolic function profile. 4. Structurally normal valves without significant valvular regurgitation. 5. Normal PA pressure. 6. Normal right atrial pressure. 7. No pericardial effusion. 8. Impression: Normal echocardiogram. Carotid Doppler 01/22/2024: Widely patent carotid arteries of the neck. Velocity measurements and ratios negative for hemodynamically significant flow-limiting stenosis. Normal antegrade flow in the bilateral vertebral arteries. Chest CT 01/22/2024: 1. Negative pulmonary embolus. No acute cardiopulmonary abnormalities. 2. Chronic findings including indeterminant subcentimeter right upper lobe noncalcified nodule, levoscoliosis, and fatty liver. Head CT without contrast 01/22/2024: Normal CT head without contrast exam. Tracing 1 Attestation: I have reviewed this EKG and interpreted as documented below. EKG Narrative: EKG 01/22/2024: NSR at 71 bpm. Intervals 0.172/0.096/0.418 (QTc 0.454). PRWP. T wave abnormality, consider anterior ischemia. Multi-Disciplinary Progress Notes: Multi-Disciplinary Progress Notes 01/22/24 20:57 Radiology Note by CYNTHIA SHEPHERD TRANSTHORACIC ECHOCARDIOGRAM 01/22/2024: 1. Normal biventricular wall thickness, chamber size, and systolic function. 2. Estimated left ventricular ejection fraction is 60-65%. 3. Normal diastolic function profile. 4. Structurally normal valves without significant valvular regurgitation. 5. Normal PA pressure. 6. Normal right atrial pressure. 7. No pericardial effusion. 8. Impression: Normal echocardiogram. Cynthia Shepherd MD [facility] Initialized on 01/22/24 20:57 - END OF NOTE Assessment & Plan (1) Syncope and collapse Current Visit: Yes Status: Acute Assessment & Plan: Isolated episode yesterday am. Suspect related to volume depletion as she had large volume diarrhea before episode followed by transient light-headedness after episode. Encouraged patient to drink an electrolyte drink after future bouts of diarrhea. If she were to have unexplained light-headedness or syncope in the future, then further cardiac monitoring would be warranted. Code(s): R55 - SYNCOPE AND COLLAPSE (2) Abnormal ECG Current Visit: Yes Status: Acute Assessment & Plan: T wave inversion in leads V2 and V3 of unclear significance. Serial troponin-I was negative. Only cardiac risk factor is her age. She has not had any ischemic symptoms. Recommend performing a noncontrast chest CT for calcium score. A score of 0 would exclude the likelihood of any significant atherosclerosis. If she does have a significant coronary calcification, then further work-up for CAD shoud be performed. Code(s): R94.31 - ABNORMAL ELECTROCARDIOGRAM [ECG] [EKG] - Encounter Encounter: "The entirety of this encounter was performed via Telemedicine using audio and visual "
== END 2024-01-23 14:40 | disposition home or self-care (01) ==
LOC: ED 08:45 → MED SURG 11:55
PROVIDERS: ADMIT Internal Medicine; ATTEND Internal Medicine
DX: N39.0 Urinary tract infection, site not specified (principal); R55 Syncope and collapse; R94.31 Abnormal electrocardiogram [ECG] [EKG]; F41.9 Anxiety disorder, unspecified; K21.9 Gastro-esophageal reflux disease without esophagitis; E66.9 Obesity, unspecified; R19.7 Diarrhea, unspecified; K76.0 Fatty (change of) liver, not elsewhere classified; S50.12XA Contusion of left forearm, initial encounter; R91.1 Solitary pulmonary nodule; T78.40XA Allergy, unspecified, initial encounter; G43.909 Migraine, unspecified, not intractable, without status migrainosus; Z79.899 Other long term (current) drug therapy
CPT/HCPCS: 0241U; 36000; 36415; 70450; 71260; 73090; 80053; 81001; 81025; 83735; 84484; 85025; 85027; 85379; 87086; 93005; 93041; 93306; 93880; 94760; 96365; 99285; J0696; J1650; J3030; Q3014; A9270-GY